=== PATIENT | female | born 1940 | race Caucasian/White ===

== ENCOUNTER 2018-12-03 09:21 | Observation (INO) ==
[2018-12-03 10:01] LABS: Hematocrit 41.1 % (37.0-47.0); Mean Cell Volume 78.6 fl (78-100); Mean Corpuscular Hemoglobin 24.9 pg (27-31); Mean Corpuscular Hgb Conc 31.6 g/dl (32-36); Platelet Count 171 K/mm3 (150-450); Red Blood Count 5.23 M/mm3 (4.2-5.4); White Blood Count 8.2 K/mm3 (4.0-10.5)
[2018-12-03 10:10] LABS: Total Cells Counted 100
[2018-12-03 10:15] LABS: Troponin I Less than 0.017 ng/mL (0.00-0.10)
[2018-12-03 10:17] LABS: ALT 20 U/L (19-67); AST 17 U/L (0-48); Albumin * 3.6 gm/dl (3.4-5.0); Alkaline Phosphatase * 98 U/L (50-170); Anion Gap 15.7 mmol/L (6.8-13.8); BNP * 4679 pg/mL (5-550); BUN/Creatinine Ratio 15.3 (9.0-21.6); Bilirubin, Total 0.8 mg/dL (0.0-1.1); Blood Urea Nitrogen 17 mg/dL (3-23); Ca. Corrected For Albumin 9.1 mg/dL (8.4-10.2); Calcium * 9.1 mg/dL (7.9-10.9); Carbon Dioxide 26.5 mmol/L (24-32.6); Chloride 96 mmol/L (97-106); Glucose * 141 mg/dL (70-110); Potassium 4.2 mmol/L (3.4-4.6); Sodium 134 mmol/L (132-142); Total Protein 7.2 gm/dL (6.2-8.2)
[2018-12-03 10:20] LABS: Atypical (Reactive) Lymph 1 % (0-2); Band 9 % (0-2.0); Immature Granulocyte 3 (0-1); Lymphocyte 10 % (20-51); Microcytosis 1+; Monocyte 11 % (0-9); Neutrophil 66 % (42-75); Neutrophil # 5.4 K/mm3 (1.3-6.0); Platelet Estimate Normal (NORMAL)
--- NOTE | 2018-12-03 10:26 | ERNOTE ---
Date of Service: 12/03/18 Time Seen by Provider: 12/03/18 10:26 Stated Complaint: cold, headache,weak, dropping things Presenting Symptoms:: cough Source: patient, family Exam Limitations: no limitations Immunizations: IMMUNIZATION HX Immunizations Up to Date Yes History of Influenza Vaccine Yes Hx Pneumococcal Vaccination Yes Allergies/Adverse Reactions: Allergies No Known Allergies Allergy (Verified 12/03/18 09:42) Home Medications: HOME MEDICATIONS aspirin 81 mg tablet,delayed release 81 mg PO DAILY 01/27/18 [Last Taken Unknown] magnesium 250 mg tablet 250 mg PO DAILY 01/27/18 [Last Taken Unknown] vitamin A-vit C-vit E-zinc-Cu tablet 2 tab PO BID 01/27/18 [Last Taken Unknown] amitriptyline 50 mg tablet 50 mg PO HS 09/28/18 [Last Taken Unknown] lisinopril 40 mg tablet 40 mg PO DAILY 09/28/18 [Last Taken Unknown] calcium carbonate 390 mg calcium (1,000 mg) tablet 390 mg PO DAILY 11/22/18 [Last Taken Unknown] ferrous sulfate 325 mg (65 mg iron) tablet 325 mg PO DAILY 11/22/18 [Last Taken Unknown] amLODIPine BESYLATE [Norvasc] 5 mg PO DAILY 12/03/18 [Last Taken Unknown] - Pain Score Pain Score #1 Pain Score: 0 - History of Present Ilness Narrative: The patient is a 78 year old female who presents for dyspnea which has been present for 1 week with worsening symptoms this am. There are associated s ymptoms of productive cough and weakness. The patient denies pain. There are no alleviating factors. There are aggravating factors of activity. Previous treatments have included: Coricidin without improvement. The past medical history includes: HTN, depression and aortic stenosis. The social history is positive for current tobacco use. The patient has had no ill contacts. Patient resides at home with daughter and son-in-law. Patient states upon awakening had increased shortness of breath with activity. Review of Systems - Review of Systems Constitutional: Present: chills, fatigue. Absent: fever EYE: Present: no symptoms reported ENT: Present: nose congestion, nasal drainage. Absent: ear pain, sore throat Respiratory: Present: shortness of breath, cough Cardiology: Present: palpitations. Absent: chest pain Gastrointestinal/Abdominal: Present: no symptoms reported. Absent: nausea, vomiting, diarrhea, abdominal pain Genitourinary: Present: no symptoms reported. Absent: dysuria Musculoskeletal: Present: no symptoms reported Skin: Present: no symptoms reported. Absent: rash Neurological: Present: weakness All Other Systems: All systems neg except as marked Medical History (Updated 12/03/18 @ 11:59 by CHERI Mcintosh) Aortic stenosis (Chronic) Hypertension (Chronic) Hypertension Major depression Varicose vein of leg Surgical History: Surgical History (Updated 01/27/18 @ 12:59 by Verito Zapien [facility]) H/O tubal ligation H/O: hysterectomy Hx of cholecystectomy Hx of tonsillectomy Family History: Family History (Updated 01/27/18 @ 15:36 by Verito Zapien [facility]) Grandmother Diabetes Mother Diabetes Father Cancer lung cancer Brother Diabetes Cancer Leukemia Brother Diabetes Social History: Preferred Language Burkinan Smoking Status Current every day smoker Have you smoked in the past 12 Yes months Alcohol Use none Drug Use none (Last Updated 11/23/18 @ 21:09 by Coty Reddy DO) No Social History Section defined Physical Exam - Physical Exam General Appearance: Present: wd/wn, alert, mild distress, other - malaise Head Exam: Present: normal inspection Eye Exam: Normal inspection: bilateral Neck: Present: normal inspection Respiratory: Present: no respiratory distress, accessory muscle use, decreased breath sounds Cardiovascular/Chest: Present: irregularly irregular, systolic murmur Peripheral Pulses: N=norm/S=strong/W=weak/B=bound/A=absent: Radial (R): Normal Gastrointestinal/Abdominal: Present: normal bowel sounds, nontender, nondistended, soft, no organomegaly Extremity Exam: Present: no edema Neurological Exam: Present: alert, oriented, normal mood/affect Skin Exam: Present: normal color, warm/dry Progress - Date and Time Seen: Date and Time: 12/03/18 11:56 Patient ambulatory with RT for activity trial. O2 on RA during activity 94% but patient dyspneic during activity. Discussed case with and will admit observation for new onset AFib with controlled rate, CHF and COPD exacerbation. - Results and Orders Patient's Lab Results:: I have reviewed the patient's lab results. - Vital Signs Patient's Vital Signs:: I have reviewed the patient's vital signs. Vital Signs: Vital Signs 12/03/18 09:38 12/03/18 09:43 Temperature 36.0 C Pulse Rate 72 72 Respiratory Rate 19 Blood Pressure 114/50 O2 Sat by Pulse Oximetry 97 - EKG EKG #1 EKG: atrial fibrillation - rate 79 EKG read: Reviewed by me - Reviewed with - X-Ray X-Ray #1 X-Ray: chest Interpretation: Reviewed by me X-ray Comments: IMPRESSION: 1. No focal acute cardiopulmonary finding. 2. Findings compatible with acute or chronic bronchitis versus reactive airways disease. Also consider COPD/emphysema, if the patient has history of smoking or other risk factors. 3. Mild cardiomegaly. Thoracic aortic atherosclerotic disease. Electronically signed by Gayle Ryan M.D. - Progress/Reassessment Chief Complaint: Upper Respiratory Symptoms Departure Clinical Impression: COPD exacerbation, New onset a-fib CHF (congestive heart failure) Qualifiers: Heart failure type: unspecified Heart failure chronicity: acute Qualified Code(s): I50.9 - Heart failure, unspecified - Departure Disposition: Still a patient Condition: Good
[2018-12-03] MEDS ORDERED: ALBUTEROL SULFATE/IPRATROPIUM 3 ML NEBU IH ONE (10:58)
[2018-12-03] MEDS ORDERED: METHYLPREDNISOLONE SOD SUCC/PF 125 MG/2 ML VIAL IV ONE (10:58)
[2018-12-03] MEDS ORDERED: AZITHROMYCIN 250 MG TABLET PO ONE (12:23)
[2018-12-03] MEDS ORDERED: DEXTROSE 5 % IN WATER 100 ML BAG IV ONE (12:31)
[2018-12-03 13:47] LABS: Urine Bilirubin Negative (NEGATIVE); Urine Blood Negative /ul (NEGATIVE); Urine Ketone Negative (NEGATIVE); Urine Nitrite Negative (NEGATIVE); Urine Protein 30 mg/dL (NEGATIVE); Urine Urobilinogen Normal (NORMAL)
[2018-12-03 13:58] LABS: Urine Appearance Slightly Cloudy (CLEAR); Urine Bacteria 1+; Urine Color Yellow; Urine Fine Granular Cast 0-5 /LPF; Urine Hyaline Cast >25 /LPF; Urine RBC TRACE /hpf (0-5); Urine Transitional Epi Cells Few - 1+ /hpf
[2018-12-03] MEDS ORDERED: POLYETHYLENE GLYCOL 3350 17 GM PACKET PO PRN (15:16)
--- NOTE | 2018-12-03 15:27 | HP ---
Chief Complaint - Chief Complaint Date of Service: 12/03/18 Time of Service: 14:48 Chief Complaint: cough, weak History of Present Illness: Pt with past medical history of aortic stenosis, HTN presented to the ED with cough and weakness. She has a diagnosis of COPD and CHF in her chart, but states she does not take medications for these diagnoses. The cough is been present for about a week. She started taking an [id number] medicine for cough, which helped her cough up phlegm. She had some chest soreness with her cough, but otherwise no chest pain. She felt warm, but did not think she had a fever. Her appetite is somewhat decreased. She did not sleep well last night because of her cough. She had increased weakness today, prompting her to come to the ER. She was so weak she dropped her coffee cup. She feels like her ba rubin is somewhat off. In the ED, EKG shows she is in A. fib. She feels like this was mentioned in a previous ED visit in [place], however she does not take medications for it. Medical History (Updated 12/03/18 @ 11:59 by CHERI Mcintosh) Aortic stenosis (Chronic) Hypertension (Chronic) Hypertension Major depression Varicose vein of leg Surgical History: Surgical History (Updated 01/27/18 @ 12:59 by Verito Zapien [facility]) H/O tubal ligation H/O: hysterectomy Hx of cholecystectomy Hx of tonsillectomy Family History: Family History (Updated 01/27/18 @ 15:36 by Verito Zapien [facility]) Grandmother Diabetes Mother Diabetes Father Cancer lung cancer Brother Diabetes Cancer Leukemia Brother Diabetes Social History: Patient Lives/Resources sister Utilized Preferred Language Mauritian Do you have any adventist or No cultural preference? Smoking Status Current every day smoker Have you smoked in the past 12 Yes months Alcohol Use none Drug Use none (Last Updated 11/23/18 @ 21:09 by Coty Reddy DO) No Social History Section defined Review Of Systems (GEN) - Review of Systems Generalized/Overall Review: Present: Weakness, Fatigue. Absent: Fever Respiratory: Present: Cough, Shortness of Breath. Absent: Wheezing - Slight, today Cardiac: Absent: Chest Pain, Edema Abdominal: Present: Constipation. Absent: Nausea, Diarrhea Genitourinary: Present: No Symptoms Reported Musculoskeletal: Present: No Symptoms Reported Neurological: Present: Other - Mild balance disturbance today Skin: Present: No Symptoms Reported Immunizations: IMMUNIZATION HX Immunizations Up to Date Yes History of Influenza Vaccine Yes Hx Pneumococcal Vaccination Yes Allergies/Adverse Reactions: Allergies Allergy/AdvReac Type Severity Reaction Status Date / Time No Known Allergies Allergy Verified 12/03/18 13:49 Home Medications: HOME MEDICATIONS aspirin 81 mg tablet,delayed release 81 mg PO DAILY 01/27/18 [Last Taken 12/02/18 09:00] magnesium 250 mg tablet 250 mg PO DAILY 01/27/18 [Last Taken 12/02/18 09:00] vitamin A-vit C-vit E-zinc-Cu tablet 2 tab PO BID 01/27/18 [Last Taken 12/02/18 21:00] amitriptyline 50 mg tablet 50 mg PO HS 09/28/18 [Last Taken 12/02/18 21:00] lisinopril 40 mg tablet 40 mg PO DAILY 09/28/18 [Last Taken 12/02/18 09:00] calcium carbonate 390 mg calcium (1,000 mg) tablet 390 mg PO DAILY 11/22/18 [Last Taken 12/02/18 09:00] ferrous sulfate 325 mg (65 mg iron) tablet 150 mg PO DAILY 11/22/18 [Last Taken 12/02/18 09:00] amLODIPine BESYLATE [Norvasc] 5 mg PO DAILY 12/03/18 [Last Taken 12/02/18 21:00] Exam - Exam Vital Signs: Vital Signs - Last Taken Temp 36.6 C 12/03/18 13:56 Pulse 80 12/03/18 13:56 Resp 18 12/03/18 13:56 BP 112/50 12/03/18 13:56 Pulse Ox 95 12/03/18 13:56 Constitutional: Present: Alert, Oriented x3, Cooperative, No distress ENT Exam: Present: dry mucous membranes Neck: Present: supple Respiratory: Present: lungs clear, normal breath sounds, no respiratory distress Cardiovascular/Chest: Present: regular rate, rhythm, no edema, systolic murmur Abdomen: Present: nontender, obese Extremity: Absent: lower extremity edema Neurologic: Present: normal mood/affect Eye contact: Present: cooperative Diagnostic Studies: Abnormal Lab Results 12/03/18 12/03/18 12/03/18 Range/Units 09:55 09:55 13:39 MCH 24.9 L (27-31) pg MCHC 31.6 L (32-36) g/dl RDW 24.0 H (11.5-14.0) % Band Neuts % (Manual) 9 H (0-2.0) % Lymphocytes % (Manual) 10 L (20-51) % Monocytes % (Manual) 11 H (0-9) % Immature Granulocytes 3 H (0-1) Lymphocytes # (Manual) 0.8 L (1.5-3.5) k/mm3 Chloride 96 L (97-106) mmol/L Anion Gap 15.7 H (6.8-13.8) mmol/L Est GFR (Non-Af Amer) 51 L (60-130) mL/min Random Glucose 141 H (70-110) mg/dL B-Natriuretic Peptide 4679 H (5-550) pg/mL Urine Protein 30 H (NEGATIVE) mg/dL Ur Leukocyte Esterase 25 H (NEGATIVE) /ul Urine WBC 5-10 H (0-5) /hpf Ur Epithelial Cells 10-25 H (0-5) /hpf Ur Transition Epith Cell Few - 1+ H (NONE) /hpf Urine Bacteria 1+ H (NONE) Hyaline Casts >25 H (NONE) /LPF Fine Granular Casts 0-5 H (NONE) /LPF Coarse Granular Casts 5-10 H (NONE) /LPF Laboratory Results WBC 8.2 K/mm3 (4.0-10.5) 12/03/18 09:55 RBC 5.23 M/mm3 (4.2-5.4) 12/03/18 09:55 Hgb 13.0 gm/dL (12.5-16.0) 12/03/18 09:55 Hct 41.1 % (37.0-47.0) 12/03/18 09:55 MCV 78.6 fl (78-100) 12/03/18 09:55 MCH 24.9 pg (27-31) L 12/03/18 09:55 MCHC 31.6 g/dl (32-36) L 12/03/18 09:55 RDW 24.0 % (11.5-14.0) H 12/03/18 09:55 Plt Count 171 K/mm3 (150-450) 12/03/18 09:55 66 % (42-75) 12/03/18 09:55 Band Neuts % (Manual) 9 % (0-2.0) H 12/03/18 09:55 10 % (20-51) L 12/03/18 09:55 11 % (0-9) H 12/03/18 09:55 3 (0-1) H 12/03/18 09:55 5.4 K/mm3 (1.3-6.0) 12/03/18 09:55 0.8 k/mm3 (1.5-3.5) L 12/03/18 09:55 0.9 k/mm3 (0.0-1.0) 12/03/18 09:55 Atypic/Reactive Lymphs 1 % (0-2) 12/03/18 09:55 Normal (NORMAL) 12/03/18 09:55 1+ 12/03/18 09:55 Sodium 134 mmol/L (132-142) 12/03/18 09:55 135 mmol/L (130-142) 12/03/18 09:55 Potassium 4.2 mmol/L (3.4-4.6) 12/03/18 09:55 Chloride 96 mmol/L (97-106) L 12/03/18 09:55 Carbon Dioxide 26.5 mmol/L (24-32.6) 12/03/18 09:55 15.7 mmol/L (6.8-13.8) H 12/03/18 09:55 BUN 17 mg/dL (3-23) 12/03/18 09:55 1.11 mg/dL (0.4-1.4) 12/03/18 09:55 Est GFR (Non-Af Amer) 51 mL/min (60-130) L 12/03/18 09:55 15.3 (9.0-21.6) 12/03/18 09:55 141 mg/dL (70-110) H 12/03/18 09:55 Calcium 9.1 mg/dL (7.9-10.9) 12/03/18 09:55 Calcium Adj for Albumin 9.1 mg/dL (8.4-10.2) 12/03/18 09:55 0.8 mg/dL (0.0-1.1) 06/21/19 09:55 AST 17 U/L (0-48) 12/03/18 09:55 ALT 20 U/L (19-67) 12/03/18 09:55 98 U/L (50-170) 12/03/18 09:55 Less than 0.017 ng/mL (0.00-0.10) 12/03/18 09:55 B-Natriuretic Peptide 4679 pg/mL (5-550) H 12/03/18 09:55 7.2 gm/dL (6.2-8.2) 12/03/18 09:55 3.6 gm/dl (3.4-5.0) 12/03/18 09:55 Yellow 12/03/18 13:39 Slightly cloudy (CLEAR) 12/03/18 13:39 6.0 pH (5.0-7.0) 12/03/18 13:39 Ur Specific [place] 1.010 SP.GR. (1.005-1.010) 12/03/18 13:39 30 mg/dL (NEGATIVE) H 12/03/18 13:39 Negative mg/dL (NEGATIVE) 12/03/18 13:39 Negative mg/dL (NEGATIVE) 12/03/18 13:39 Negative /ul (NEGATIVE) 12/03/18 13:39 Negative (NEGATIVE) 12/03/18 13:39 Negative mg/dl (NEGATIVE) 12/03/18 13:39 Prot Sulfosalicylic Acd 1+ mg/dL (0) 12/03/18 13:39 Normal EU/dl (NORMAL) 12/03/18 13:39 Ur Leukocyte Esterase 25 /ul (NEGATIVE) H 12/03/18 13:39 Trace /hpf (0-5) 12/03/18 13:39 5-10 /hpf (0-5) H 12/03/18 13:39 Ur Epithelial Cells 10-25 /hpf (0-5) H 12/03/18 13:39 Ur Transition Epith Cell Few - 1+ /hpf (NONE) H 12/03/18 13:39 1+ (NONE) H 12/03/18 13:39 Hyaline Casts >25 /LPF (NONE) H 12/03/18 13:39 Fine Granular Casts 0-5 /LPF (NONE) H 12/03/18 13:39 Coarse Granular Casts 5-10 /LPF (NONE) H 12/03/18 13:39 Culture to follow 12/03/18 13:39 Assessment/Plan - Assessment/Plan (1) Cough Assessment: Lung sounds are clear, and she has no lower extremity swelling. Likely secondary to viral upper respiratory infection. Initial troponin negative, and repeat pending. Initial EKG showed A. fib, which is potentially new, but she does think that she has been told she has A. fib at a previous ER visit. She has been weak also but she reports not getting much sleep last night because of her cough. PT evaluation pending for tomorrow. Chest x-ray states acute or chronic bronchitis. White blood cell count not elevated. She was given a dose of azithromycin and Rocephin in the ER. Will not continue antibiotics, and reassess in the morning. Problem: Acute (2) New onset a-fib Assessment: EKG shows A. fib, however she sounded regular on auscultation. Discussed anticoagulation, and she agrees if it is necessary. If she is in regular rhythm, it may not be necessary. Repeat EKG pending. Problem: Acute (3) Aortic stenosis Assessment: She previously was established with Dr. Brito, but has not seen them in quite a while. Been unable to find the degree of her stenosis in her chart. She reports having a copy of it at home. Prior to this current event, she denied shortness of breath or decrease in exercise tolerance. Problem: Chronic (4) Hypertension Assessment: BP is a bit low, which may account for her weakness. Hold home amlodipine and lisinopril, and resume if BP is consistently greater than 140/90. Problem: Chronic Qualifiers: (5) Abnormal urinalysis Assessment: Denies dysuria or urinary symptoms. UA showed epithelial cells, so that urinalysis is likely contaminated. Culture pending. She was given a dose of Rocephin in the ED. Problem: Acute (6) Iron deficiency Assessment: She takes iron supplements. Discussed looking for signs of GI bleed, but she may be unable to assess that since she is already having black stools. Problem: Chronic
[2018-12-03] MEDS ORDERED: AMITRIPTYLINE HCL 50 MG TABLET PO SCH (21:00)
[2018-12-03] MEDS ORDERED: amLODIPine BESYLATE 5 MG TABLET ONE (21:33)
[2018-12-03] MEDS: amLODIPine BESYLATE 5 MG TABLET PO SCH (21:37)
[2018-12-04] MEDS: amLODIPine BESYLATE 5 MG TABLET PO SCH ×2 (08:15→10:14)
--- NOTE | 2018-12-04 09:54 | DS ---
(1) Cough Problem: Chronic (2) Paroxysmal A-fib Problem: Acute (3) Aortic stenosis Problem: Chronic (4) Hypertension Problem: Chronic Qualifiers: (5) Abnormal urinalysis Problem: Acute (6) Iron deficiency Problem: Chronic Description of Stay: Patient with past medical history of aortic stenosis, HTN presented to the ED with cough and weakness. She has a diagnosis of COPD and CHF in her chart, but states she does not take medications for these diagnoses. The cough is been present for about a week. She started taking an [id number] medicine for cough, which helped her cough up phlegm. She had some chest soreness with her cough, but otherwise no chest pain. She felt warm, but did not think she had a fever. Her appetite is somewhat decreased. She did not sleep well the night before admission because of her cough. She had increased weakness, prompting her to come to the ER. She was so weak she dropped her coffee cup. She feels like her balance is somewhat off. In the ED, EKG shows she is in A. fib. She feels like this was mentioned in a previous ED visit in [place], however she does not take medications for it. On my admission exam, she sounded regular, and EKG showed NSR. With her history of intermittent afib, we discussed anticoagulation, to which she agreed. She felt better on the day of DC, but did not feel 100% yet. She reported being able to walk easier. Initial US in the ED was positive for leukocyte esterase, but was contaminated with epithelial cells. No growth on urine culture. Procedures Performed: none Results and Findings: Pending Mircobiology Results 12/03/18 13:39 Urine,Voided Urine Culture - Preliminary No Growth Lab Pending Results 12/03/18 09:55: WBC 8.2, RBC 5.23, Hgb 13.0, Hct 41.1, MCV 78.6, MCH 24.9 L, MCHC 31.6 L, RDW 24.0 H, Plt Count 171, Neutrophils % (Manual) 66, Band Neuts % (Manual) 9 H, Lymphocytes % (Manual) 10 L, Monocytes % (Manual) 11 H, Immature Granulocytes 3 H, Neutrophils # (Manual) 5.4, Lymphocytes # (Manual) 0.8 L, Monocytes # (Manual) 0.9, Atypic/Reactive Lymphs 1, Platelet Estimate Normal, Microcytosis 1+ 12/03/18 09:55: Sodium 134, Plasma Sodium 135, Potassium 4.2, Chloride 96 L, Carbon Dioxide 26.5, Anion Gap 15.7 H, BUN 17, Creatinine 1.11, Est GFR (Non-Af Amer) 51 L, BUN/Creatinine Ratio 15.3, Random Glucose 141 H, Calcium 9.1, Calcium Adj for Albumin 9.1, Total Bilirubin 0.8, AST 17, ALT 20, Alkaline Phosphatase 98, Troponin I Less than 0.017, B-Natriuretic Peptide 4679 H, Total Protein 7.2, Albumin 3.6 12/03/18 13:39: Urine Color Yellow, Urine Appearance Slightly cloudy, Urine pH 6.0, Ur Specific [place] 1.010, Urine Protein 30 H, Urine Glucose (UA) Negative, Urine Ketones Negative, Urine Blood Negative, Urine Nitrate Negative, Urine Bilirubin Negative, Prot Sulfosalicylic Acd 1+, Urine Urobilinogen Normal, Ur Leukocyte Esterase 25 H, Urine RBC Trace, Urine WBC 5-10 H, Ur Epithelial Cells 10-25 H, Ur Transition Epith Cell Few - 1+ H, Urine Bacteria 1+ H, Hyaline Casts >25 H, Fine Granular Casts 0-5 H, Coarse Granular Casts 5-10 H, Urine Culture Comments Culture to follow 12/03/18 15:30: Troponin I Less than 0.017 Discharge Location: Home Disposition: Home self-care Condition: Good Discharge Activity: Activity as tolerated Discharge Diet: General/regular food Referrals: Coty Reddy DO [Primary Care Provider] - One Week (Previously scheduled appt with sd 12/10/18.) Additional Patient Instructions (free text): -Please make TCM appointment unless residential discharge, or if following up with outside provider. Thank you! Justine @ [id number] or Coty at [facility] [id number]. Prescriptions (Any new or edited meds): Apixaban [Eliquis] 5 mg PO BID #60 tab Complete Home Medications List: Complete Home Medication List: aspirin 81 mg tablet,delayed release 81 mg PO DAILY 01/27/18 magnesium 250 mg tablet 250 mg PO DAILY 01/27/18 vitamin A-vit C-vit E-zinc-Cu tablet 2 tab PO BID 01/27/18 amitriptyline 50 mg tablet 50 mg PO HS 09/28/18 lisinopril 40 mg tablet 40 mg PO DAILY 09/28/18 calcium carbonate 390 mg calcium (1,000 mg) tablet 390 mg PO DAILY 11/22/18 ferrous sulfate 325 mg (65 mg iron) tablet 150 mg PO DAILY 11/22/18 amLODIPine BESYLATE [Norvasc] 5 mg PO HS 12/03/18 Apixaban [Eliquis] 5 mg PO BID #60 tab 12/04/18
[2018-12-04 12:40] VITALS: BP 144/78
[2018-12-04] MEDS ORDERED: amLODIPine BESYLATE 5 MG TABLET PO SCH (21:00)
== END 2018-12-04 13:30 | disposition home or self-care (01) ==
LOC: MS 09:21 → ER 09:21 → MS 12:44
PROVIDERS: ADMIT Family Medicine; ATTEND Family Medicine
DX: R05 Cough; I48.0 Paroxysmal atrial fibrillation; I35.0 Nonrheumatic aortic (valve) stenosis; E61.1 Iron deficiency; R82.90 Unspecified abnormal findings in urine; I10 Essential (primary) hypertension
CPT/HCPCS: 36415; 71020; 71046; 80053; 81001; 83519; 83880; 84484; 85025; 87086; 93005; 94640; 94664; 94760; 96365; 96375; 97161; 99285; G0378

== ENCOUNTER 2020-06-16 18:43 | Inpatient (IN) ==
[2020-06-16] MEDS ORDERED: HYDROmorphone HCL 1 MG/ML DISP.SYRIN IV ONE (18:48)
[2020-06-16 19:01] LABS: Hematocrit 35.3 % (37.0-47.0); Hemoglobin 10.8 gm/dL (12.5-16.0); Mean Cell Volume 80.2 fl (78-100); Mean Corpuscular Hemoglobin 24.5 pg (27-31); Mean Corpuscular Hgb Conc 30.6 g/dl (32-36); Neutrophil # 2.1 K/mm3 (1.3-6.0); Neutrophil % 54.5 % (42-75.0); Platelet Count 190 K/mm3 (150-450); Red Cell Distribution Width 25.2 % (11.5-14.0); White Blood Count 3.8 K/mm3 (4.0-10.5)
--- NOTE | 2020-06-16 19:10 | ERNOTE ---
Lower Extremity HPI - Narrative Date of Service: 06/16/20 - General Lower Extremities Pain: knee: right Time Seen by Provider: 06/16/20 18:47 Source: patient, EMS Exam Limitations: no limitations - Immun/Allergies/Home Medications Immunizations: IMMUNIZATION HX Immunizations Up to Date Yes History of Influenza Vaccine Yes Hx Pneumococcal Vaccination Yes Allergies/Adverse Reactions: Allergies Allergy/AdvReac Type Severity Reaction Status Date / Time No Known Allergies Allergy Verified 06/10/19 13:31 Home Medications: HOME MEDICATIONS aspirin 81 mg tablet,delayed release 81 mg PO DAILY 01/27/18 [Last Taken 12/02/18 09:00] magnesium 250 mg tablet 250 mg PO DAILY 01/27/18 [Last Taken 12/02/18 09:00] vitamin A-vit C-vit E-zinc-Cu tablet 2 tab PO BID 01/27/18 [Last Taken 12/02/18 21:00] amitriptyline 50 mg tablet 50 mg PO HS 09/28/18 [Last Taken 12/02/18 21:00] calcium carbonate 390 mg calcium (1,000 mg) tablet 390 mg PO DAILY 11/22/18 [Last Taken 12/02/18 09:00] ferrous sulfate 325 mg (65 mg iron) tablet 150 mg PO DAILY 11/22/18 [Last Taken 12/02/18 09:00] Polyethylene Glycol 3350 [Miralax] 17 gm PO DAILY PRN packet 12/04/18 [Last Taken Unknown] apixaban 5 mg tablet See Rx Instructions .ROUTE .COMPLEX #90 tab 08/16/19 [Last Taken Unknown] lisinopril 40 mg tablet 40 mg PO DAILY #90 tab 04/06/20 [Last Taken Unknown] - History of Present Illness Narrative: This patient is a 79-year-old female who is here with right leg pain. She stepped out onto her porch about 5:30 PM. She slipped on the ice and the right leg was caught underneath her. She heard a pop and had instant pain. She has not been able to bear weight. She received fentanyl in the ambulance. She has mild pain at rest but severe pain with movement. No distal numbness or tingling. No other injury. She is on Eliquis for atrial fibrillation. Review of Systems - Review of Systems Constitutional: Absent: fever ENT: Absent: ear pain, nose congestion, nasal drainage, sore throat Respiratory: Absent: shortness of breath, cough Cardiology: Absent: chest pain, syncope Gastrointestinal/Abdominal: Absent: nausea, vomiting, diarrhea, constipation, abdominal pain Genitourinary: Present: no symptoms reported Musculoskeletal: Present: joint pain Skin: Present: other - No open wound Neurological: Absent: headache, numbness, tingling Hematologic/Lymphatic: Present: See HPI Psych: Present: no symptoms reported Medical History (Last Reviewed 06/16/20 @ 19:07 by Adán Smith MD) Aortic stenosis (Chronic) Hypertension (Chronic) Atrial fibrillation Hypertension Major depression Varicose vein of leg Surgical History: Surgical History (Last Reviewed 06/16/20 @ 19:07 by Adán Smith MD) H/O tubal ligation H/O: hysterectomy Hx of cholecystectomy Hx of tonsillectomy Family History: Family History (Last Reviewed 06/16/20 @ 19:07 by Adán Smith MD) Grandmother Diabetes Mother Diabetes Father Cancer lung cancer Brother Diabetes Cancer Leukemia Brother Diabetes Social History: (Last Reviewed 06/16/20 @ 19:07 by Adán Smith MD) Social History: mcfp: No Marital status: number of children: 3 current occupational status: retired Service: No Tobacco: Smoking Status: Current every day smoker Alcohol: alcohol intake: former Substance Use: substance use type: does not use Dietary Habits: caffeine: Yes Physical Exam - Physical Exam General Appearance: Present: wd/wn, alert, obese, other - She did not appear to be in severe pain at rest, but with movement of the leg, she has a severe pain response. Head Exam: Present: normal inspection, no evidence of injury Eye Exam: Normal inspection: bilateral Ears, Nose, Throat: Present: normal ENT inspection Neck: Present: normal inspection, nontender, supple Respiratory: Present: no respiratory distress, normal breath sounds, lungs clear Cardiovascular/Chest: Present: regular rate, rhythm, no murmur Gastrointestinal/Abdominal: Present: normal bowel sounds, nontender, nondistended, soft, no organomegaly Extremity Exam: Present: normal except - - Some swelling proximal to the right knee. The leg appears to be rotated. She has tenderness and severe pain in the area with movement. This would be the right leg. Neurological Exam: Present: alert, oriented, normal mood/affect, other - No distal numbness. Skin Exam: Present: normal color, warm/dry Progress - Date and Time Seen: Date and Time: 06/16/20 19:44 I spoke with Vance Mata. They hope to do surgery on Thursday. I spoke with Dr. Victor. He agrees to admit the patient. - Results and Orders Patient's Lab Results:: I have reviewed the patient's lab results. - Vital Signs Patient's Vital Signs:: I have reviewed the patient's vital signs. - EKG EKG #1 EKG read: Interp. by me EKG Comments: Atrial fibrillation Normal rate Poor R wave progression No acute appearing ST or T wave changes No significant change from prior EKG. - X-Ray X-Ray #1 X-Ray: knee Interpretation: Interp. by me X-ray Comments: Comminuted distal femur fracture Departure Clinical Impression: Comminuted fracture of shaft of femur - Departure Disposition: Still a patient Condition: Stable Referrals: Coty Reddy DO [Primary Care Provider] -
[2020-06-16] MEDS ORDERED: ONDANSETRON HCL/PF 2 MG/ML VIAL ONE (19:16)
[2020-06-16 19:18] LABS: Albumin * 3.5 gm/dl (3.4-5.0); Anion Gap 10.3 mmol/L (6.8-13.8); Bilirubin, Total 0.6 mg/dL (0.0-1.1); Ca. Corrected For Albumin 9.8 mg/dL (8.4-10.2); Calcium * 9.7 mg/dL (7.9-10.9); Carbon Dioxide 31.1 mmol/L (24-32.6); Potassium 4.4 mmol/L (3.4-4.6); Total Protein 6.8 gm/dL (6.2-8.2)
[2020-06-16] MEDS ORDERED: ONDANSETRON HCL/PF 2 MG/ML VIAL IV ONE (19:18)
[2020-06-16] MEDS ORDERED: NORMAL SALINE 1,000 ML IV ONE (19:28)
[2020-06-16] MEDS ORDERED: METOCLOPRAMIDE HCL 5 MG/ML VIAL IV ONE (19:47)
[2020-06-16] MEDS: oxyCODONE HCL/ACETAMINOPHEN 1 TAB TABLET PO PRN (23:59)
[2020-06-17] MEDS: oxyCODONE HCL/ACETAMINOPHEN 1 TAB TABLET PO PRN ×5 (04:06→20:02)
[2020-06-17] MEDS: METOCLOPRAMIDE HCL 10 MG TABLET PO PRN ×2 (04:07→18:51)
--- NOTE | 2020-06-17 09:03 | HP ---
Chief Complaint - Chief Complaint Date of Service: 06/17/20 Time of Service: 09:03 Chief Complaint: Right leg pain History of Present Illness: [place] is a 79 yo female who slipped on the ice and twisted her leg back behind her. She immediately had pain and unable to walk. She was taken to the [facility] ER where she had xrays showing "Acute, mildly displaced, impacted and slightly angulated distal femoral fracture with possible intra-articular extension and suggestion of mild lipohemarthrosis. Consider noncontrast CT correlation to further evaluate." She was given IV dilaudid for pain and had nausea. She reports was otherwise in her usual state of health. The cause to the fall was ice. She specifically denies chest pain, shortness of breath, fever, or chills. Medical History (Last Reviewed 06/16/20 @ 21:38 by Lala Domingo RN) Aortic stenosis (Chronic) Hypertension (Chronic) Atrial fibrillation Hypertension Major depression Varicose vein of leg Surgical History: Surgical History (Last Reviewed 06/16/20 @ 21:39 by Lala Domingo RN) H/O tubal ligation H/O: hysterectomy Hx of cholecystectomy Hx of tonsillectomy Family History: Family History (Last Reviewed 06/16/20 @ 21:39 by Lala Domingo RN) Grandmother Diabetes Mother Diabetes Father Cancer lung cancer Brother Diabetes Cancer Leukemia Brother Diabetes Social History: (Last Reviewed 06/16/20 @ 21:39 by Lala Domingo RN) Social History: mcfp: No Marital status: number of children: 3 current occupational status: retired Service: No Tobacco: Smoking Status: Current every day smoker Alcohol: alcohol intake: former Substance Use: substance use type: does not use Dietary Habits: caffeine: Yes Review Of Systems (GEN) - Review of Systems Generalized/Overall Review: Present: Fever. Absent: Weakness, Chills EENTM: Present: No Symptoms Reported Respiratory: Absent: Cough, Shortness of Breath Cardiac: Absent: Chest Pain, Palpitations, Syncope Abdominal: Present: Nausea. Absent: Vomiting, Abdominal Pain Genitourinary: Present: No Symptoms Reported Musculoskeletal: Present: Joint Pain, Muscle Pain Neurological: Present: No Symptoms Reported Skin: Present: No Symptoms Reported Endocrine: Present: No Symptoms Reported Immunizations: IMMUNIZATION HX Immunizations Up to Date Yes Immunizations Comment Pneumonia shot 2017 History of Influenza Vaccine Yes Hx Pneumococcal Vaccination Yes Allergies/Adverse Reactions: Allergies Allergy/AdvReac Type Severity Reaction Status Date / Time No Known Allergies Allergy Verified 06/10/19 13:31 Home Medications: HOME MEDICATIONS aspirin 81 mg tablet,delayed release 81 mg PO DAILY 01/27/18 [Last Taken 06/16/20 10:00] magnesium 250 mg tablet 250 mg PO DAILY 01/27/18 [Last Taken 06/16/20 10:00] vitamin A-vit C-vit E-zinc-Cu tablet 2 tab PO BID 01/27/18 [Last Taken 06/16/20 10:00] amitriptyline 50 mg tablet 50 mg PO HS 09/28/18 [Last Taken 06/15/20 21:00] calcium carbonate 390 mg calcium (1,000 mg) tablet 390 mg PO DAILY 11/22/18 [Last Taken 06/16/20 10:00] ferrous sulfate 325 mg (65 mg iron) tablet 150 mg PO DAILY 11/22/18 [Last Taken 06/15/20 21:00] Polyethylene Glycol 3350 [Miralax] 17 gm PO DAILY PRN packet 12/04/18 [Last Taken Unknown] apixaban 5 mg tablet See Rx Instructions .ROUTE .COMPLEX #90 tab 08/16/19 [Last Taken 06/16/20 10:00] lisinopril 40 mg tablet 40 mg PO DAILY #90 tab 04/06/20 [Last Taken 06/16/20 10 :00] Exam - Exam Vital Signs: Vital Signs - Last Taken Temp 36.9 C 06/17/20 07:14 Pulse 105 H 06/17/20 07:14 Resp 18 06/17/20 07:14 BP 129/55 06/17/20 07:14 Pulse Ox 90 L 06/17/20 07:14 Constitutional: Present: Alert, Oriented x3, Cooperative ENT Exam: Present: hearing grossly normal Eye Exam: bilateral eye: normal inspection Respiratory: Present: lungs clear, normal breath sounds, no respiratory distress Cardiovascular/Chest: Present: systolic murmur - 3+, irregularly irregular Peripheral Pulses: radial (R): 2+, radial (L): 2+ Abdomen: Present: Normal bowel sounds, soft, nontender, nondistended Skin Exam: Present: normal color, warm/dry, no cyanosis Neurologic: Present: no motor/sensory deficits, alert, normal mood/affect, oriented x 3 Appearance: Present: appropriate appearance, appropriate insight Eye contact: Present: cooperative, good eye contact, normal speech Thoughts: Present: normal thought pattern, no apparent hallucination Diagnostic Studies: Abnormal Lab Results 06/16/20 06/16/20 Range/Units 18:59 18:59 WBC 3.8 L (4.0-10.5) K/mm3 Hgb 10.8 L (12.5-16.0) gm/dL Hct 35.3 L (37.0-47.0) % MCH 24.5 L (27-31) pg MCHC 30.6 L (32-36) g/dl RDW 25.2 H (11.5-14.0) % Immature Gran % (Auto) 1.60 H (0.001-0.429) % Immature Gran # (Auto) 0.06 H (0.000-0.0310) K/mm3 Lymphocytes # 1.49 L (1.5-3.5) k/mm3 BUN/Creatinine Ratio 23.0 H (9.0-21.6) Random Glucose 126 H (70-110) mg/dL Laboratory Results WBC 3.8 K/mm3 (4.0-10.5) L 06/16/20 18:59 RBC 4.40 M/mm3 (4.2-5.4) 06/16/20 18:59 Hgb 10.8 gm/dL (12.5-16.0) L 06/16/20 18:59 Hct 35.3 % (37.0-47.0) L 06/16/20 18:59 MCV 80.2 fl (78-100) 06/16/20 18:59 MCH 24.5 pg (27-31) L 06/16/20 18:59 MCHC 30.6 g/dl (32-36) L 06/16/20 18:59 RDW 25.2 % (11.5-14.0) H 06/16/20 18:59 Plt Count 190 K/mm3 (150-450) 06/16/20 18:59 Immature Gran % (Auto) 1.60 % (0.001-0.429) H 06/16/20 18:59 Immature Gran # (Auto) 0.06 K/mm3 (0.000-0.0310) H 06/16/20 18:59 Neutrophils % 54.5 % (42-75.0) 06/16/20 18:59 Lymphocytes % 38.9 % (20-51) 06/16/20 18:59 Monocytes % 4.2 % (0.0-9) 06/16/20 18:59 Eosinophils % 0.5 % (0.0-3.0) 06/16/20 18:59 Basophils % 0.3 % (0.0-1.0) 06/16/20 18:59 Nucleated RBC % 0.0 k/mm3 (0-1) 06/16/20 18:59 Neutrophils # 2.1 K/mm3 (1.3-6.0) 06/16/20 18:59 Lymphocytes # 1.49 k/mm3 (1.5-3.5) L 06/16/20 18:59 Monocytes # 0.2 k/mm3 (0.0-1.0) 06/16/20 18:59 Eosinophils # 0.0 k/mm3 (0.0-0.7) 06/16/20 18:59 Absolute Basophils 0.0 k/mm3 (0.0-0.1) 06/16/20 18:59 Sodium 139 mmol/L (132-142) 06/16/20 18:59 Plasma Sodium 139 mmol/L (130-142) 06/16/20 18:59 Potassium 4.4 mmol/L (3.4-4.6) 06/16/20 18:59 Chloride 102 mmol/L (97-106) 06/16/20 18:59 Carbon Dioxide 31.1 mmol/L (24-32.6) 06/16/20 18:59 Anion Gap 10.3 mmol/L (6.8-13.8) 06/16/20 18:59 BUN 17 mg/dL (3-23) 06/16/20 18:59 Creatinine 0.74 mg/dL (0.4-1.4) 06/16/20 18:59 Est GFR (Non-Af Amer) 80 mL/min (60-130) 06/16/20 18:59 BUN/Creatinine Ratio 23.0 (9.0-21.6) H 06/16/20 18:59 Random Glucose 126 mg/dL (70-110) H 06/16/20 18:59 Calcium 9.7 mg/dL (7.9-10.9) 06/16/20 18:59 Calcium Adj for Albumin 9.8 mg/dL (8.4-10.2) 06/16/20 18:59 Total Bilirubin 0.6 mg/dL (0.0-1.1) 06/16/20 18:59 AST 14 U/L (0-48) 06/16/20 18:59 ALT 25 U/L (19-67) 06/16/20 18:59 Alkaline Phosphatase 96 U/L (50-170) 06/16/20 18:59 Total Protein 6.8 gm/dL (6.2-8.2) 06/16/20 18:59 Albumin 3.5 gm/dl (3.4-5.0) 06/16/20 18:59 SARS-CoV-2 (PCR) Not detected (NotDetected) 06/16/20 19:46 Assessment/Plan - Narrative Narrative: [place] is a 79 yo female who was in her usual state of health when she slipped on the ice and suffered a right femoral shaft fracture. Ortho was consulted by ER and believe this to require surgical management. She appears to be at her baseline for medical state and I do not see any contraindications to surgery in that the benefits of surgery outweigh the risks. She is on anticoag ulation and I will hold eliquis and aspirin. She will get lovenox for today and hold day of surgery. Medically cleared for surgery. - Assessment/Plan (1) Comminuted fracture of shaft of femur Problem: Acute Qualifiers: Encounter type: initial encounter Fracture type: closed Fracture alignment: displaced Laterality: right Qualified Code(s): S72.351A - Displaced comminuted fracture of shaft of right femur, initial encounter for closed fracture (2) Paroxysmal A-fib Problem: Chronic (3) Aortic stenosis Problem: Chronic
[2020-06-17] MEDS: POLYETHYLENE GLYCOL 3350 17 GM PACKET PO SCH (09:27)
[2020-06-17] MEDS: LISINOPRIL 40 MG TABLET PO SCH (09:28)
[2020-06-17] MEDS: DOCUSATE SODIUM 100 MG CAPSULE PO SCH ×2 (09:28→20:04)
[2020-06-17] MEDS: ENOXAPARIN SODIUM 40 MG/0.4 ML SYRG SC SCH (09:29)
[2020-06-17] MEDS: MAGNESIUM OXIDE 400 MG TABLET PO SCH (09:30)
[2020-06-17] MEDS: FERROUS SULFATE 325 MG TABLET PO SCH (09:30)
--- NOTE | 2020-06-17 11:37 | CONS ---
[facility] - General Date of Service: 06/17/20 Narrative: 79-year-old female presents status post a fall. Patient had a right lower leg injury. She was brought to the ER x-rays were taken found to have a displaced distal femur fracture. Patient was admitted to the hospital to the medicine team. Patient's chronic medical history includes COPD, A. fib. Patient this morning rates her pain at a 2/10. She does note overnight there was a mild struggle to get the pain under control however at this time it is well controlled. Patient otherwise did not hit her head she has no other acute complaints. Patient states she slipped and fell on the ice while walking outside and landed on her right side. This is how the injury occurred. She denies any significant radiating symptoms. She denies any other modifying factors outside of pain with movement better with rest. Patient has had mild nausea that is been treated with Reglan. Patient otherwise denies any acute concerns currently. Source: patient Exam Limitations: no limitations - History of Present Illness Allergies/Adverse Reactions: Allergies No Known Allergies Allergy (Verified 06/10/19 13:31) Home Medications: Home Medications Medication Instructions Recorded Last Taken aspirin 81 mg tablet,delayed 81 mg PO DAILY 01/27/18 06/16/20 10:00 release magnesium 250 mg tablet 250 mg PO DAILY 01/27/18 06/16/20 10:00 vitamin A-vit C-vit E-zinc-Cu 2 tab PO BID 01/27/18 06/16/20 10:00 tablet amitriptyline 50 mg tablet 50 mg PO HS 09/28/18 06/15/20 21:00 calcium carbonate 390 mg calcium 390 mg PO DAILY 11/22/18 06/16/20 10:00 (1,000 mg) tablet ferrous sulfate 325 mg (65 mg 150 mg PO DAILY 11/22/18 06/15/20 21:00 iron) tablet Polyethylene Glycol 3350 [Miralax] 17 gm PO DAILY PRN packet 12/04/18 Unknown apixaban 5 mg tablet See Rx Instructions .ROUTE 08/16/19 06/16/20 10:00 .COMPLEX #90 tab lisinopril 40 mg tablet 40 mg PO DAILY #90 tab 04/06/20 06/16/20 10:00 Medications - Medications Current Medications: Current Medications Docusate Sodium (Docusate Sodium 100 Mg Capsule) 100 mg PO BID [facility] Stop: 07/17/20 09:16 Last Admin: 06/17/20 09:28 Dose: 100 mg Documented by: Enoxaparin Sodium (Enoxaparin Sodium 40 Mg/0.4 Ml Syrg) 40 mg SC Q24H [facility] Stop: 07/17/20 09:16 Last Admin: 06/17/20 09:29 Dose: 40 mg Documented by: Ferrous Sulfate (Ferrous Sulfate 325 Mg Tablet) 325 mg PO DAILY [facility] Stop: 07/17/20 09:31 Last Admin: 06/17/20 09:30 Dose: 325 mg Documented by: Lisinopril (Lisinopril 40 Mg Tablet) 40 mg PO DAILY [facility] Stop: 07/17/20 09:01 Last Admin: 06/17/20 09:28 Dose: 40 mg Documented by: Magnesium Oxide (Magnesium Oxide 400 Mg Tablet) 400 mg PO DAILY [facility] Stop: 07/17/20 09:31 Last Admin: 06/17/20 09:30 Dose: 400 mg Documented by: Metoclopramide HCl (Metoclopramide Hcl 10 Mg Tablet) 10 mg PO Q6H PRN PRN Reason: nausea Stop: 07/16/20 22:46 Last Admin: 06/17/20 04:07 Dose: 10 mg Documented by: Polyethylene Glycol (Polyethylene Glycol 3350 17 Gm Packet) 17 gm PO DAILY [facility] Stop: 07/17/20 09:01 Last Admin: 06/17/20 09:27 Dose: 17 gm Documented by: Physical Examination - Exam Vital Signs: Vital Signs - Last Taken Temp 36.8 C 06/17/20 10:24 Pulse 103 H 06/17/20 10:24 Resp 18 06/17/20 10:24 BP 109/59 06/17/20 10:24 Pulse Ox 90 L 06/17/20 10:24 O2 Oxygen Delivery Method Room Air Constitutional: Present: Alert, Oriented x3, Cooperative, No distress Respiratory: Present: no respiratory distress Extremity: Present: other - Right lower extremity--> strong distal pulses, capillary refill brisk, sensation intact light touch, 5/5 plantar flexion dorsiflexion ankle, diffuse mild tenderness about the knee, no obvious wounds, no significant outward deformity Skin Exam: Present: normal color, warm/dry Appearance: Present: appropriate appearance Eye contact: Present: cooperative, good eye contact Thoughts: Present: normal thought pattern - Results and Findings: Lab/Microbiology results last 24 hrs: Abnormal/Pending Laboratory Last 24 HRS 06/16/20 06/16/20 18:59 18:59 WBC 3.8 L Hgb 10.8 L Hct 35.3 L MCH 24.5 L MCHC 30.6 L RDW 25.2 H Immature Gran % (Auto) 1.60 H Immature Gran # (Auto) 0.06 H Lymphocytes # 1.49 L BUN/Creatinine Ratio 23.0 H Random Glucose 126 H - Assessments/Findings (1) Comminuted fracture of shaft of femur Problem: Acute Qualifiers: Encounter type: initial encounter Fracture type: closed Fracture alignment: displaced Laterality: right Qualified Code(s): S72.351A - Displaced comminuted fracture of shaft of right femur, initial encounter for closed fracture Plan - Plan Plan: -71-year-old female present status post fall with a right distal femur fracture. Discussed with patient treatment options including conservative or surgical intervention. Discussed risk first benefits including but not limited to bleeding, infection, cardiac and stroke risk, DVT risk, inherent risk of surgery, anesthetic risk, surgical complications, nonunion versus nonunion fracture healing. Patient expressed understanding wishes to proceed with surgical intervention. Patient is currently on Eliquis this been held at this time plan to proceed with surgical intervention on 06/18/2020. Have discussed this case in detail with Dr. Price. Consent has been obtained, all questions are answered at this time. Patient expressed understanding as well as the postoperative recovery. Patient will continue to be monitored and managed by the medicine team for chronic conditions as well as acute complications. Patient will continue with pain control, diet will be changed to n.p.o. at midnight. Patient can otherwise continue with current treatment course.
[2020-06-17] MEDS: AMITRIPTYLINE HCL 50 MG TABLET PO SCH (20:04)
[2020-06-18] MEDS: METOCLOPRAMIDE HCL 10 MG TABLET PO PRN ×4 (02:41→23:08)
[2020-06-18] MEDS: oxyCODONE HCL/ACETAMINOPHEN 1 TAB TABLET PO PRN ×5 (03:25→23:05)
[2020-06-18] MEDS ORDERED: TRANEXAMIC ACID 1,000 MG in NORMAL SALINE 100 ML IV PRN (06:00)
[2020-06-18] MEDS ORDERED: RINGER'S SOLUTION,LACTATED 1,000 ML IV PRN (06:00)
[2020-06-18] MEDS ORDERED: ceFAZolin SODIUM 1 GM VIAL IV PRN (06:00)
--- NOTE | 2020-06-18 08:30 | PN ---
Subjective - Date and Time Seen Date: 06/18/20 Time: 08:00 Subjective Narrative: Patient reports her pain and nausea are under control. She's using the spirometer when she remembers. Hasn't had a BM yet since admission, but denies abdominal discomfort or bloating. When she's ready for DC, she does not want to go to a rehab facility because she doesn't want to contract COVID there. Objective - Review of Systems Generalized/Overall Review: Denies: Fever Respiratory: Denies: Shortness of Breath Cardiac: Denies: Chest Pain, Edema Abdominal: Denies: Nausea, Vomiting, Abdominal Pain Genitourinary Symptoms: Reports: No Symptoms Reported, Other - koch Musculoskeletal Complaints: Reports: Other - right thigh pain Neurological: Reports: No Symptoms Reported - Vitals Vitals: Last Vital Signs Temp 36.8 C 06/18/20 06:21 Pulse 111 H 06/18/20 06:21 Resp 18 06/18/20 06:21 BP 110/54 06/18/20 06:21 Pulse Ox 93 06/18/20 06:21 - Exam Constitutional: Present: Alert, Cooperative, Obese Respiratory: Present: lungs clear, normal breath sounds, no respiratory distress Cardiovascular/Chest: Present: systolic murmur, irregularly irregular Abdomen: Present: soft, nontender, obese Extremity: Present: other - right leg in brace. Absent: lower extremity edema Eye contact: Present: cooperative, good eye contact Cauti Physician Documentation - Urinary Catheter Management Urethral (Koch) Date of Insertion: 06/16/20 Time of Insertion: 22:40 Assessment/Plan Plan Narrative: Pain and nausea are currently controlled. Potential surgical repair of comminued right femur fracture later today. Holding anticoagulation today, and resume per surgeon. Post op PT per surgeon as well. Hold lisinopril this morning, for somewhat low BP overnight, potentially due to pain meds. Her chronic afib and aortic stenosis are at her baseline. She would strongly prefer not to go to a skilled nursing or rehab facility after DC, because she feels like that would increase her chance of mireya COVID. - Problems/Diagnosis (1) Comminuted fracture of shaft of femur Problem: Acute Qualifiers: Encounter type: initial encounter Fracture type: closed Fracture align ment: displaced Laterality: right Qualified Code(s): S72.351A - Displaced comminuted fracture of shaft of right femur, initial encounter for closed fracture (2) Paroxysmal A-fib Problem: Chronic (3) Aortic stenosis Problem: Chronic (4) Hypertension Problem: Chronic Qualifiers:
[2020-06-18] MEDS: DOCUSATE SODIUM 100 MG CAPSULE PO SCH ×2 (09:54→21:31)
[2020-06-18] MEDS: FERROUS SULFATE 325 MG TABLET PO SCH (09:54)
[2020-06-18] MEDS: MAGNESIUM OXIDE 400 MG TABLET PO SCH (09:55)
[2020-06-18] MEDS: POLYETHYLENE GLYCOL 3350 17 GM PACKET PO SCH (09:55)
[2020-06-18] MEDS ORDERED: [UNRECOGNIZED DRUG - SUPPLY] MC ONE (10:15)
--- NOTE | 2020-06-18 12:00 | PN ---
Subjective - Date and Time Seen Date: 06/18/20 Time: 08:30 Subjective Narrative: She is resting in bed. No complaints. She states her pain is tolerable. She is wearing a knee immobilizer. Objective - Vitals Vitals: Last Vital Signs Temp 36.7 C 06/18/20 09:59 Pulse 102 H 06/18/20 09:59 Resp 20 06/18/20 09:59 BP 122/52 06/18/20 09:59 Pulse Ox 93 06/18/20 09:59 - Exam Exam Narrative: Right lower extremity: Mild ecchymosis, thigh and calf are soft, able to flex and extend toes, sensation intact light touch, palpable dorsalis pedis pulse Constitutional: Present: Alert, Oriented x3 Cauti Physician Documentation - Urinary Catheter Management Urethral (Bear) Date of Insertion: 06/16/20 Time of Insertion: 22:40 Assessment/Plan - Problems/Diagnosis (1) Comminuted fracture of shaft of femur Problem: Acute Qualifiers: Encounter type: initial encounter Fracture type: closed Fracture alignment: displaced Laterality: right Qualified Code(s): S72.351A - Displaced comminuted fracture of shaft of right femur, initial encounter for closed fracture Narrative: We are currently waiting on the implants to be brought to the facility and thus are on hold until tomorrow for surgery. She can eat and drink today. N.p.o. after midnight. Hold Lovenox after today. Plan is for open reduction internal fixation of right femur fracture.
[2020-06-18] MEDS: AMITRIPTYLINE HCL 50 MG TABLET PO SCH (21:31)
[2020-06-19] MEDS: oxyCODONE HCL/ACETAMINOPHEN 1 TAB TABLET PO PRN ×5 (04:28→22:46)
[2020-06-19] MEDS: RINGER'S SOLUTION,LACTATED 1,000 ML IV PRN ×2 (05:45→13:53)
[2020-06-19] MEDS: MAGNESIUM OXIDE 400 MG TABLET PO SCH (09:00)
[2020-06-19] MEDS: POLYETHYLENE GLYCOL 3350 17 GM PACKET PO SCH (09:00)
[2020-06-19] MEDS: LISINOPRIL 40 MG TABLET PO SCH (09:00)
[2020-06-19] MEDS: FERROUS SULFATE 325 MG TABLET PO SCH (09:00)
[2020-06-19] MEDS: DOCUSATE SODIUM 100 MG CAPSULE PO SCH ×2 (09:00→21:25)
--- NOTE | 2020-06-19 10:31 | PN ---
Subjective - Date and Time Seen Date: 06/19/20 Time: 09:45 Subjective Narrative: Patient unable to have surgery yesterday due to part availability. Has not had a BM. She reported shoulder pain to her nurse yesterday, which is chronic, but she wanted to bring it up while she was here. Is using oxygen. Denies CP or SOB. Objective - Review of Systems Generalized/Overall Review: Denies: Fever Respiratory: Denies: Shortness of Breath Cardiac: Denies: Chest Pain, Edema Abdominal: Reports: Other - has not had a BM, but does not feel uncomfortable. Denies: Vomiting Genitourinary Symptoms: Reports: No Symptoms Reported, Other - koch in place Musculoskeletal Complaints: Reports: Other - right thigh pain - Vitals Vitals: Last Vital Signs Temp 37.1 C 06/19/20 06:44 Pulse 104 H 06/19/20 06:44 Resp 20 06/19/20 06:44 BP 116/55 06/19/20 06:44 Pulse Ox 91 L 06/19/20 06:44 - Exam Constitutional: Present: Alert, Cooperative, Elderly, Obese Respiratory: Present: lungs clear, normal breath sounds Cardiovascular/Chest: Present: systolic murmur, irregularly irregular Abdomen: Present: Normal bowel sounds, soft, nontender Extremity: Present: other - SCDs in place, brace on right leg Eye contact: Present: cooperative, good eye contact Cauti Physician Documentation - Urinary Catheter Management Urethral (Koch) Date of Insertion: 06/16/20 Time of Insertion: 22:40 Assessment/Plan Plan Narrative: She is 3 days out from a slip on the ice, sustaining an "Acute, mildly displaced, impacted and slightly angulated distal femoral fracture with possible intra-articular extension and suggestion of mild lipohemarthrosis." On today's pre-op assessment, her VP SCIENTIFIC astutely noticed her murmur is prominent. She has a history of moderate aortic valve stenosis. She previously followed at a internal communications specialist, but when that internal communications specialist left the area, she did not establish with another one. Using the NSQIP surgical risk calculator, she is high risk for cardiac complications perioperatively. She is not symptomatic currently of her aortic stenosis. I feel like she should have her surgery done at a facility with cardiology and an ICU available to manage these potential complications. Discussed this with her and her sister, Cass, who agreed with transfer. Pain is currently controlled. She hasn't yet had a BM, but does not feel uncomfortable. Will continue daily docusate and miralax. - Problems/Diagnosis (1) Comminuted fracture of shaft of femur Problem: Acute Qualifiers: Encounter type: initial encounter Fracture type: closed Fracture alignme nt: displaced Laterality: right Qualified Code(s): S72.351A - Displaced comminuted fracture of shaft of right femur, initial encounter for closed fracture (2) Paroxysmal A-fib Problem: Chronic (3) Aortic stenosis Problem: Chronic Narrative: mild- Moderate aortic stenosis with mild-moderate mitral regurgitation, per her initial establish note with me. Will again attempt to get echo results from 2019 done at [facility]. (4) Hypertension Problem: Chronic Qualifiers:
--- NOTE | 2020-06-19 16:28 | DS ---
Transfer Discharge Summary - Diagnosis(s)/Problems (1) Comminuted fracture of shaft of femur Problem: Acute (2) Paroxysmal A-fib Problem: Chronic (3) Aortic stenosis Problem: Chronic (4) Hypertension Problem: Chronic (5) Blood loss anemia Problem: Acute (6) Mitral regurgitation and aortic stenosis Problem: Chronic - Course Description of Stay: Patient with PMHx of moderate aortic stenosis with moderate mitral regurgitation was admitted on Thursday evening of 06/16/20 after slipping on ice at home. Workup in the ED showed an "Acute, mildly displaced, impacted and slightly angulated distal femoral fracture with possible intra-articular extension and suggestion of mild lipohemarthrosis." She did not hit her head or have other complaints. Ortho was consulted, and parts were ordered for surgical repair, which were received on 06/19/20. Her pain was controlled with Percocet every 3 hours. She was also initially nauseated, but this improved with pain control. She did not require oxygen until pain meds were administered. She was weaned to 1 L on the day of transfer. Her persistent oxygen requirement was felt to be due to a combination of comorbidities, pain meds, and her blood loss anemia. During her stay, her hemoglobin decreased from 10.3 on admission to 7.8 on 06/19/20. This was found while transfer arrangements were being made. One unit PRBC ordered, and will be administered here if transportation is delayed. She did not have a BM while here, but denies discomfort. Docusate was given on 06/17 and 06/18, and miralax have been given on 06/17. Her home eliquis was held on admission. She was given lovenox on the morning of 06/17, and was subsequently held, thinking she was to have surgery each day. During her pre-op assessment by our HEMODIALYSIS TECHNICIAN, her murmur was significant. I did another pre-op evaluation using the NSQIP surgical risk calculator, which helped determine she was at above average risk for cardiac complications. I felt like she was too high risk to undergo this surgery here. With the higher potential for cardiac event, I feel like this surgery should be done at a facility with cardiology and an ICU. She was initially accepted to [facility] in [place], however after further evaluation by their orthopedists, they felt like her fracture was too complicated to fix there. She was then accepted at the [facility]. Consultation Done:: orthopedics Procedures Performed: none - Medications Medications: Active Medications Amitriptyline HCl (Amitriptyline Hcl 50 Mg Tablet) 50 mg PO HS [facility] Stop: 07/17/20 21:01 Last Admin: 06/18/20 21:31 Dose: 50 mg Documented by: Docusate Sodium (Docusate Sodium 100 Mg Capsule) 100 mg PO BID [facility] Stop: 07/17/20 09:16 Last Admin: 06/19/20 09:00 Dose: Not Given Documented by: Enoxaparin Sodium (Enoxaparin Sodium 40 Mg/0.4 Ml Syrg) 40 mg SC Q24H [facility] Stop: 06/20/20 09:16 Last Admin: 06/17/20 09:29 Dose: 40 mg Documented by: Ferrous Sulfate (Ferrous Sulfate 325 Mg Tablet) 325 mg PO DAILY [facility] Stop: 07/17/20 09:31 Last Admin: 06/19/20 09:00 Dose: Not Given Documented by: Lactated Ringer's (Lactated Ringers) 1,000 mls @ 125 mls/hr IV .Q8H PRN PRN Reason: HYDRATION Stop: 07/19/20 06:01 Last Admin: 06/19/20 13:53 Dose: 125 mls/hr Documented by: Lisinopril (Lisinopril 40 Mg Tablet) 40 mg PO DAILY [facility] Stop: 07/17/20 09:01 Last Admin: 06/19/20 09:00 Dose: Not Given Documented by: Magnesium Oxide (Magnesium Oxide 400 Mg Tablet) 400 mg PO DAILY [facility] Stop: 07/17/20 09:31 Last Admin: 06/19/20 09:00 Dose: Not Given Documented by: Metoclopramide HCl (Metoclopramide Hcl 10 Mg Tablet) 10 mg PO Q6H PRN PRN Reason: nausea Stop: 07/16/20 22:46 Last Admin: 06/18/20 23:08 Dose: 10 mg Documented by: Oxycodone/Acetaminophen (Oxycodone Hcl/Acetaminophen 1 Tab Tablet) 1 tab PO Q3H PRN PRN Reason: Moderate Pain (pain scale 4-6) Stop: 07/17/20 11:29 Last Admin: 06/19/20 15:58 Dose: 1 tab Documented by: Polyethylene Glycol (Polyethylene Glycol 3350 17 Gm Packet) 17 gm PO DAILY [facility] Stop: 07/17/20 09:01 Last Admin: 06/19/20 09:00 Dose: Not Given Documented by: Discontinued Medications Hydromorphone HCl (Hydromorphone Hcl 1 Mg/Ml Disp.Syrin) 1 mg IV ONCE ONE Stop: 06/16/20 18:49 Last Admin: 06/16/20 18:57 Dose: 1 mg Documented by: Sodium Chloride (Sodium Chloride 0.9%) 1,000 mls @ 125 mls/hr IV .Q8H ONE Stop: 06/17/20 03:27 Last Infusion: 06/17/20 05:04 Dose: Infused Documented by: Lactated Ringer's (Lactated Ringers) 1,000 mls @ 125 mls/hr IV .Q8H PRN PRN Reason: HYDRATION Stop: 06/18/20 23:59 Last Infusion: 06/18/20 19:10 Dose: Infused Documented by: Metoclopramide HCl (Metoclopramide Hcl 5 Mg/Ml Vial) 10 mg IV ONCE ONE Stop: 06/16/20 19:48 Last Admin: 06/16/20 19:59 Dose: 10 mg Documented by: Miscellaneous (Denture Cleanser 60 Tab Box) 1 tab MC DAILY ONE Stop: 06/18/20 10:16 Last Admin: 06/18/20 12:11 Dose: 1 tab Documented by: Ondansetron HCl (Ondansetron Hcl/Pf 2 Mg/Ml Vial) 4 mg IV ONCE ONE Stop: 06/16/20 19:19 Last Admin: 06/16/20 19:20 Dose: 4 mg Documented by: Oxycodone/Acetaminophen (Oxycodone Hcl/Acetaminophen 1 Tab Tablet) 1 tab PO Q4H PRN PRN Reason: Moderate Pain (pain scale 4-6) Stop: 07/16/20 22:36 Last Admin: 06/17/20 08:06 Dose: 1 tab Documented by: - Disposition Disposition: Short Term Hospital Inpatient Condition: Fair
[2020-06-19 16:56] LABS: Hematocrit 25.3 % (37.0-47.0); Mean Cell Volume 80.3 fl (78-100); Mean Corpuscular Hemoglobin 24.8 pg (27-31); Mean Corpuscular Hgb Conc 30.8 g/dl (32-36); Platelet Count 178 K/mm3 (150-450); Red Blood Count 3.15 M/mm3 (4.2-5.4); Red Cell Distribution Width 25.7 % (11.5-14.0); White Blood Count 4.9 K/mm3 (4.0-10.5)
[2020-06-19 17:11] LABS: Hemoglobin 7.8 gm/dL (12.5-16.0)
[2020-06-19 17:13] LABS: Total Cells Counted 100
[2020-06-19 18:12] LABS: Atypical (Reactive) Lymph 5 % (0-2); Band 21 % (0-2.0); Immature Granulocyte 2 (0-1); Lymphocyte 20 % (20-51); Monocyte 2 % (0-9); Neutrophil 50 % (42-75); Neutrophil # 2.5 K/mm3 (1.3-6.0); Platelet Estimate Normal (NORMAL)
[2020-06-19 18:13] LABS: Anisocytosis 3+; Hypochromia 1+; Target Cells Trace
[2020-06-19] MEDS: AMITRIPTYLINE HCL 50 MG TABLET PO SCH (21:25)
[2020-06-19 22:34] LABS: Hematocrit 27.9 % (37.0-47.0); Hemoglobin 8.6 gm/dL (12.5-16.0)
[2020-06-20] MEDS: RINGER'S SOLUTION,LACTATED 1,000 ML IV PRN ×2 (00:44→09:13)
[2020-06-20] MEDS: oxyCODONE HCL/ACETAMINOPHEN 1 TAB TABLET PO PRN ×3 (02:21→11:25)
[2020-06-20 08:27] LABS: Hematocrit 26.8 % (37.0-47.0); Hemoglobin 8.5 gm/dL (12.5-16.0); Mean Corpuscular Hgb Conc 31.7 g/dl (32-36); Platelet Count 165 K/mm3 (150-450); Red Blood Count 3.27 M/mm3 (4.2-5.4); Red Cell Distribution Width 25.2 % (11.5-14.0); White Blood Count 4.5 K/mm3 (4.0-10.5)
[2020-06-20 08:29] LABS: Total Cells Counted 100
[2020-06-20 08:39] LABS: Band 7 % (0-2.0); Lymphocyte 20 % (20-51); Monocyte 9 % (0-9); Neutrophil 64 % (42-75); Neutrophil # 2.9 K/mm3 (1.3-6.0)
[2020-06-20 08:40] LABS: Anisocytosis 1+; Platelet Estimate Normal (NORMAL)
--- NOTE | 2020-06-20 08:46 | ANES ---
Anesthesia Pre Procedure Eval Vitals/Labs: Last Vital Signs Temp 36.7 C 06/20/20 06:25 Pulse 116 H 06/20/20 06:25 Resp 18 06/20/20 06:25 BP 142/76 06/20/20 06:25 Pulse Ox 95 06/20/20 06:25 HOME MEDICATIONS aspirin 81 mg tablet,delayed release 81 mg PO DAILY 01/27/18 [Last Taken 06/16/20 10:00] magnesium 250 mg tablet 250 mg PO DAILY 01/27/18 [Last Taken 06/16/20 10:00] vitamin A-vit C-vit E-zinc-Cu tablet 2 tab PO BID 01/27/18 [Last Taken 06/16/20 10:00] amitriptyline 50 mg tablet 50 mg PO HS 09/28/18 [Last Taken 06/15/20 21:00] calcium carbonate 390 mg calcium (1,000 mg) tablet 390 mg PO DAILY 11/22/18 [Last Taken 06/16/20 10:00] ferrous sulfate 325 mg (65 mg iron) tablet 150 mg PO DAILY 11/22/18 [Last Taken 06/15/20 21:00] Polyethylene Glycol 3350 [Miralax] 17 gm PO DAILY PRN packet 12/04/18 [Last Taken Unknown] lisinopril 40 mg tablet 40 mg PO DAILY #90 tab 04/06/20 [Last Taken 06/16/20 10:00] Apixaban [Eliquis] 5 mg PO BID 06/18/20 [Last Taken 06/16/20 10:00] Allergies/Adverse Reactions: Allergies Allergy/AdvReac Type Severity Reaction Status Date / Time No Known Allergies Allergy Verified 06/10/19 13:31 - Planned Procedure Planned Procedure: Femur FX Medication List Reviewed:: Yes Allergies Verified: Yes Medical History (Last Reviewed 06/20/20 @ 08:38 by Paul Myers CRNA) Aortic stenosis (Chronic) Hypertension (Chronic) Atrial fibrillation Hypertension Major depression Varicose vein of leg Surgical History (Last Reviewed 06/20/20 @ 08:38 by Paul Myers CRNA) H/O tubal ligation H/O: hysterectomy Hx of cholecystectomy Hx of tonsillectomy Family History (Last Reviewed 06/20/20 @ 08:39 by Paul Myers CRNA) Grandmother Diabetes Mother Diabetes Father Cancer lung cancer Brother Diabetes Cancer Leukemia Brother Diabetes - Family Anesthesia History Family History:: no untoward family reactions to anesthesia - Airway/Neck/Teeth Within Normal Limits:: Yes Neck Exam: full range of motion Mallampatti Score: 2 Thyromental (T-M) distance: > 6 cm Mandibulo Hyoid distance: > 3 cm - Respiratory Respiratory Physical: decreased breath sounds Smoking Status: Current every day smoker Discussed smoking cessation including day of surgery: Yes Sleep Apnea currently treated: No Sleep Apnea by current assessment: No Comments:: on O2 per nasal cannula - Cardiovascular Cardiac History: arrhythmia, hypertension, valvular heart disease Tolerate Activity: Poor Heart Sounds: Irregular, Murmur - Gastrointestinal NPO since: MN - Anesthesia Assessment and Plan Narrative: Loud murmur heard on auscultation with irregular rate secondary to atrial fibrillation.Pt. also requiring oxygen to maintain saO2. Contacted Drs. Reddy and Albert to express concern with pt. cardiorespiratory status. Pt. transferred ASA Class: PS, IV
[2020-06-20 08:57] LABS: Albumin * 2.6 gm/dl (3.4-5.0); Anion Gap 3.8 mmol/L (6.8-13.8); BUN/Creatinine Ratio 36.2 (9.0-21.6); Bilirubin, Total 1.5 mg/dL (0.0-1.1); Ca. Corrected For Albumin 9.3 mg/dL (8.4-10.2); Calcium * 8.5 mg/dL (7.9-10.9); Potassium 4.8 mmol/L (3.4-4.6); Total Protein 6.1 gm/dL (6.2-8.2)
[2020-06-20] MEDS: DOCUSATE SODIUM 100 MG CAPSULE PO SCH (09:04)
[2020-06-20] MEDS: FERROUS SULFATE 325 MG TABLET PO SCH (09:04)
[2020-06-20] MEDS: MAGNESIUM OXIDE 400 MG TABLET PO SCH (09:04)
[2020-06-20] MEDS: POLYETHYLENE GLYCOL 3350 17 GM PACKET PO SCH (09:04)
[2020-06-20] MEDS: ENOXAPARIN SODIUM 40 MG/0.4 ML SYRG SC SCH (09:14)
[2020-06-20] MEDS: LISINOPRIL 40 MG TABLET PO SCH (09:14)
[2020-06-20] MEDS ORDERED: SENNOSIDES 8.6 MG TABLET PO PRN (09:33)
--- NOTE | 2020-06-20 09:42 | PN ---
Subjective - Date and Time Seen Date: 06/20/20 Time: 08:00 Subjective Narrative: She was accepted for transfer to the [facility], but they do not have beds available, so she is still at our facility. She is now 4 days out from her femur fracture. She received 1 U PRBC overnight. Pain is controlled. She has not yet had a BM. Objective - Review of Systems Generalized/Overall Review: Denies: Fever Respiratory: Denies: Shortness of Breath Cardiac: Denies: Chest Pain, Edema Abdominal: Denies: Nausea Genitourinary Symptoms: Reports: No Symptoms Reported, Other - koch in place Musculoskeletal Complaints: Reports: Other - right thigh pain - Vitals Vitals: Last Vital Signs Temp 36.7 C 06/20/20 06:25 Pulse 116 H 06/20/20 09:14 Resp 18 06/20/20 06:25 BP 142/76 06/20/20 09:14 Pulse Ox 95 06/20/20 06:25 - Abnormal Lab Findings Abnormal Lab Findings: Abnormal Lab Results 06/19/20 06/19/20 06/19/20 Range/Units 16:40 17:22 22:29 RBC 3.15 L (4.2-5.4) M/mm3 Hgb 7.8 L* D 8.6 L (12.5-16.0) gm/dL Hct 25.3 L 27.9 L (37.0-47.0) % MCH 24.8 L (27-31) pg MCHC 30.8 L (32-36) g/dl RDW 25.7 H (11.5-14.0) % Band Neuts % (Manual) 21 H (0-2.0) % Immature Granulocytes 2 H (0-1) Lymphocytes # (Manual) 1.0 L (1.5-3.5) k/mm3 Atypic/Reactive Lymphs 5 H (0-2) % Potassium (3.4-4.6) mmol/L Anion Gap (6.8-13.8) mmol/L BUN/Creatinine Ratio (9.0-21.6) Random Glucose (70-110) mg/dL Total Bilirubin (0.0-1.1) mg/dL Total Protein (6.2-8.2) gm/dL Albumin (3.4-5.0) gm/dl Crossmatch See Detail 06/20/20 06/20/20 Range/Units 08:19 08:19 RBC 3.27 L (4.2-5.4) M/mm3 Hgb 8.5 L (12.5-16.0) gm/dL Hct 26.8 L (37.0-47.0) % MCH 26.0 L (27-31) pg MCHC 31.7 L (32-36) g/dl RDW 25.2 H (11.5-14.0) % Band Neuts % (Manual) 7 H (0-2.0) % Immature Granulocytes (0-1) Lymphocytes # (Manual) 0.9 L (1.5-3.5) k/mm3 Atypic/Reactive Lymphs (0-2) % Potassium 4.8 H (3.4-4.6) mmol/L Anion Gap 3.8 L (6.8-13.8) mmol/L BUN/Creatinine Ratio 36.2 H (9.0-21.6) Random Glucose 113 H (70-110) mg/dL Total Bilirubin 1.5 H (0.0-1.1) mg/dL Total Protein 6.1 L (6.2-8.2) gm/dL Albumin 2.6 L (3.4-5.0) gm/dl Crossmatch - Exam Constitutional: Present: Alert, Cooperative, Elderly, Obese Respiratory: Present: normal breath sounds, no respiratory distress, other - room air Cardiovascular/Chest: Present: regular rate, rhythm Abdomen: Present: soft, nontender, obese Extremity: Present: other - bruising of right lower leg. Absent: lower extremity edema Neurologic: Present: other - sensation to right foot intact Eye contact: Present: cooperative, good eye contact Cauti Physician Documentation - Urinary Catheter Management Urethral (Koch) Date of Insertion: 06/16/20 Time of Insertion: 22:40 Assessment/Plan Plan Narrative: She is 4 days out from her right femur fracture, sustained when slipping on the ice. Unfortunately, with her moderate aortic stenosis and moderate mitral regurgitation, she is above average risk for complications. Transfer process started yesterday. She was denied at [facility] and [facility] due to the complexity of her fracture. She was accepted at the [facility], but there is not current bed availability, with no time frame available. She was then accepted to [facility] [place]. Pain has been controlled with percocet q3h. She has required oxygen most of her visit, since starting pain meds. She does not use O2 at baseline. Her rate is normally controlled without an agent, and was around 100 while here. Her home eliquis was held pending surgery, with the expectation it may have happened each day. Her hgb decreased from 10.3 on admission to 7.8 on 06/19/20, and she was given one U PRBC. Hgb was 8.6 after transfusion, and 8.5 the following morning. She has not had a BM since admission. She was given a dose of docusate and miralax on 06/17 and 06/18, respectively, and senna started 06/20/20. - Problems/Diagnosis (1) Comminuted fracture of shaft of femur Problem: Acute Qualifiers: Encounter type: initial encounter Fracture type: closed Fracture alignment: displaced Laterality: right Qualified Code(s): S72.351A - Displaced comminuted fracture of shaft of right femur, initial encounter for closed fracture (2) Paroxysmal A-fib Problem: Chronic (3) Aortic stenosis Problem: Chronic (4) Hypertension Problem: Chronic Qualifiers: (5) Blood loss anemia Problem: Acute (6) Mitral regurgitation and aortic stenosis Problem: Chronic
[2020-06-20 13:49] VITALS: BP 138/88
== END 2020-06-20 13:12 | disposition short-term general hospital (02) | DRG 534 ==
LOC: ER 18:43 → MS 19:51
PROVIDERS: ADMIT Family Medicine; ATTEND Family Medicine